=== PATIENT | male | born 1970 | race Caucasian/White ===

== ENCOUNTER 2018-10-31 20:02 | Emergency (ER) | payer BC ==
--- OUTSIDE RECORDS SUMMARY | 2018-10-31 20:05 | XMS REPORT ---
:1970 Author Organization eClinicalWorks Care Team Providers Name Role Phone KATHARINABUDDYDAVID Provider Role Unavailable Allergies, Adverse Reactions, Alerts Substance Reaction Event Type N.K.D.A. Info Not Available Non Drug Allergy Problems Problem Type Condition Code Onset Dates Condition Status Problem Fever in other diseases R50.81 Active Problem Diarrhea, unspecified type R19.7 Active Problem Diffuse abdominal pain R10.84 Active Assessment Cough R05 Active Assessment Bronchitis J40 Active Problem Acute non-recurrent sinusitis, J01.90 Active unspecified location Problem Personal history of colonic polyps Z86.010 Active Problem Gastroesophageal reflux disease K21.9 Active without esophagitis Problem Tobacco use disorder F17.200 Active Problem BMI 34.0-34.9,adult Z68.34 Active Problem BMI 35.0-35.9,adult Z68.35 Active Problem Obesity (BMI 35.0-39.9 without E66.9 Active comorbidity) Medications Medication Code Code Instructions Start End Status Dosage System Date Date Cheratussin AC ND 06234643960 10 mg-100 mg/5 August 09, Active 5 mL mL orally every 2016 8 hours Dulera ND 69487920073 5 mcg-200 August 16, Active 2 puff(s) mcg/inh inhaled 2017 2 times a day Azithromycin ND 57904221952 250 mg PO daily August 09August Active 2 tab on 2016 then 1 tab x 4 days Esomeprazole ND 28981282386 40 mg orally August 09Mar 07, Active 1 cap( s) Magnesium once a day 2016 2017 ProAir HFA ND 40308021144 90 mcg/inh August 16, Active 2 puff(s) inhaled 4 times 2016 a day levofloxacin ND 85354645429 500 mg orally August 16August Active 1 tab(s) every 24 hours 2016 Vital Signs Date/Time: August 16, 2016 Temperature 97.4 F Weight 229 lbs Height 68 in Respiratory Rate 16 /min Pulse 108 /min Blood Pressure Diastolic 80 mm Hg Blood Pressure Systolic 120 mm Hg BMI 34.82 Index Oximetry 96 % Results No Known Results Summary Purpose eClinicalWorks Submission
--- OUTSIDE RECORDS SUMMARY | 2018-10-31 20:05 | XMS REPORT ---
:1970 Author Organization eClinicalWorks Care Team Providers Name Role Phone GIAN PARKANNINE Provider Role Unavailable Allergies, Adverse Reactions, Alerts Substance Reaction Event Type N.K.D.A. Info Not Available Non Drug Allergy Problems Problem Type Condition Code Onset Dates Condition Status Problem Fever in other diseases R50.81 Active Problem Diarrhea, unspecified type R19.7 Active Problem Diffuse abdominal pain R10.84 Active Problem Acute non-recurrent sinusitis, J01.90 Active unspecified location Problem Personal history of colonic polyps Z86.010 Active Problem Gastroesophageal reflux disease K21.9 Active without esophagitis Problem Tobacco use disorder F17.200 Active Problem BMI 34.0-34.9,adult Z68.34 Active Problem BMI 35.0-35.9,adult Z68.35 Active Problem Obesity (BMI 35.0-39.9 without E66.9 Active comorbidity) Assessment Wheezing R06.2 Active Assessment Bronchitis J40 Active Assessment Tachycardia R00.0 Active Medications Medication Code Code Instructions Start End Status Dosage System Date Date levalbuterol ND 66732551351 1.25 mg/3 mL by August 27, Active 3 mL nebulizer 3 2017 times a day Medrol Dosepak NDC 0 6 day regimen August 27August Active taper as orally once 2016, directed daily 2016 Dulera NDC 01712665763 5 mcg-200 August 16, Active 2 puff(s) mcg/inh inhaled 2017 2 times a day Nebulizer NDC 0 as needed August 27, Active as directed 2016 ProAir HFA NDC 12519117923 90 mcg/inh August 16, Active 2 puff(s) inhaled 4 times 2016 a day Vital Signs Date/Time: August 27, 2016 Temperature 98.6 F Weight 232 lbs Height 68 in Respiratory Rate 16 /min Pulse 112 /min Blood Pressure Diastolic 82 mm Hg Blood Pressure Systolic 128 mm Hg BMI 35.27 Index Oximetry 97 % Results Name Result Date Reference Range Unit Abnormality Flag [facility] ([facility] Summary Purpose eClinicalWorks Submission
--- OUTSIDE RECORDS SUMMARY | 2018-10-31 20:05 | XMS REPORT ---
:1970 Author Organization eClinicalWorks Care Team Providers Name Role Phone SUMMER PHILLIPS Provider Role Unavailable Allergies, Adverse Reactions, Alerts [...] (BMI 35.0-39.9 without E66.9 Active comorbidity) Assessment Personal history of colonic polyps Z86.010 Active Assessment Gastroesophageal reflux disease K21.9 Active without esophagitis Assessment Obesity (BMI 35.0-39.9 without E66.9 Active comorbidity) Assessment Tobacco use disorder F17.200 Active Assessment BMI 35.0-35.9,adult Z68.35 Active Assessment Acute non-recurrent sinusitis, J01.90 Active unspecified location Medications Medication Code Code Instructions Start End Status Dosage System Date Date Esomeprazole [facility] 83239024543 40 mg orally August 09Mar 07, Active 1 cap( s) Magnesium once a day 2016 2017 Azithromycin ND 93242209627 250 mg PO daily August 09, Active 2 tab on 2017 day 1, then 1 tab x 4 days Cheratussin AC ND 17355922454 10 mg-100 mg/5 August 09, Active 5 mL mL orally every 2016 8 hours Vital Signs Date/Time: August 09, 2016 Temperature 98.0 F Weight 233 lbs Height 68 in Respiratory Rate 16 /min Pulse 90 /min Blood Pressure Diastolic 80 mm Hg Blood Pressure Systolic 132 mm Hg BMI 35.4 Index Oximetry 95 % Results No Known Results Summary Purpose eClinicalWorks Submission
--- OUTSIDE RECORDS SUMMARY | 2018-10-31 20:05 | XMS REPORT | Continuity of Care Document ---
:1970 Author Organization [employer] Care Team Providers Name Role Phone [employer] Unavailable Unavailable Problems Problem Status Onset Classification Date Comments Source Date Reported Fever in other Active Problem 10/25/2016 [facility] Diarrhea, Active Problem 10/25/2016 [facility] unspecified type [facility] Group Diffuse abdominal Active Problem 10/25/2016 [facility] Acute non-recurrent Active Problem 10/25/2016 [facility] sinusitis, [facility] unspecified location Personal history of Active Problem 07/14/2018 [facility] colonic polyps [facility] Gastroesophageal Active Problem 07/14/2018 [facility] reflux disease [facility] without esophagitis Tobacco use Active Problem 07/14/2018 [facility] BMI 34.0-34.9,adult Active Problem 07/14/2018 [facility] BMI 35.0-35.9,adult Active Problem 07/14/2018 [facility] Obesity (BMI Active Problem 07/14/2018 [facility] 35.0-39.9 without [facility] comorbidity) Bronchitis Active Diagnosis 10/25/2016 [facility] Wheezing Active Diagnosis 09/01/2016 [facility] Tachycardia Active Diagnosis 09/01/2016 [facility] Cough Active Diagnosis 07/14/2018 [facility] BMI 36.0-36.9,adult Active Problem 07/14/2018 [facility] Chronic fatigue Active Problem 07/14/2018 [facility] Obstructive sleep Active Problem 07/14/2018 [facility] apnea [facility] Has daytime Active Problem 07/14/2018 [facility] drowsiness [facility] Non morbid obesity Active Problem 07/14/2018 [facility] due to excess [facility] Group calories Acute non Active Problem 07/14/2018 [facility] intractable [facility] tension-type headache BMI 33.0-33.9,adult Active Problem 07/14/2018 [facility] Prediabetes Active Problem 07/14/2018 [facility] Vitamin D Active Problem 07/14/2018 [facility] deficiency [facility] Right sided Active Problem 07/14/2018 [facility] sciatica [facility] Right flank pain Active Diagnosis 06/18/2017 [facility] Sinus congestion Active Diagnosis 03/15/2018 [facility] Sore throat Active Diagnosis 07/14/2018 [facility] Chest tightness Active Diagnosis 07/14/2018 [facility] SOB (shortness of Active Diagnosis 07/14/2018 [facility] breath) [facility] Group Medications Medication Details Route Status Patient Ordering Order Source Instructions Provider Date Jt Perles 1 cap(s) orally Active 100 mg orally [facility] 04/23/ [facility] 3 times a day 2018 [facility] Group ProAir HFA 2 puff(s) inhaled Active 90 mcg/inh [facility] 04/23/ [facility] inhaled 4 2018 [facility] times a day fluticasone nasal 1 spray(s) intranasally Active 50 mcg/inh [facility] 04/23 / [facility] intranasally 2018 [facility] 2 times a day Mucinex 1 tab(s) orally Active 600 mg orally [facility] 04/23/ [facility] every 12 2018 [facility] hours Singulair 1 tab(s) orally Active 10 mg orally [facility] 04/23/ [facility] nightly 2018 [facility] Azithromycin 5 as po Active 250 mg po as [facility] Day Dose Pack directed directed 2018 [facility] Vitamin D3 1 tab(s) orally Active 1000 intl [facility] 07/02/ [facility] units orally 2017 [facility] once a day OTC cyclobenzaprine 1 tab(s) orally Active 5 mg orally [facility] 06/17/ [facility] qhs prn 2017 [facility] Med[facility] D[facility] ergocalciferol 1 cap(s) orally Active 50,000 intl [facility] 03/28/ [facility] units orally 2017 [facility] once a week Cheratussin AC 10 mL orally Active 10 mg-100 [facility] mg/5 mL 2016 [facility] orally every 4 hours prn levalbuterol 3 mL by nebulizer Active 1.25 mg/3 mL [facility] by nebulizer 2016 [facility] 3 times a day Nebulizer as NA Active as needed [facility] 08/27/ [facility] directed 2016 [facility] Medrol Dosepak taper as orally Active 6 day regimen [facility] 08/27/ [facility] directed orally once 2017 [facility] daily ProAir HFA 2 puff(s) inhaled Active 90 mcg/inh [facility] 08/16/ [facility] inhaled 4 2016 [facility] times a day Dulera 2 puff(s) inhaled Active 5 mcg-200 [facility] 08/16/ [facility] mcg/inh 2016 [facility] inhaled 2 times a day levofloxacin 1 tab(s) orally Active 500 mg orally [facility] 08/16/ [facility] every 24 2016 [facility] hours Cheratussin AC 5 mL orally Active 10 mg-100 [facility] 08/09/ [facility] mg/5 mL 2016 [facility] orally every 8 hours Azithromycin 2 tab on PO Active 250 mg PO [facility] 08/09/ [facility] day 1, daily 2016 [facility] then 1 tab x 4 days Esomeprazole 1 cap(s) orally Active 40 mg orally [facility] 08/09/ [facility] Magnesium once a day 2016 [facility] Nexium 1 cap(s) orally Active 40 mg orally [place] [facility] once a day [facility] Allergies, Adverse Reactions, Alerts Substance Category Reaction Severity Reaction Status Date Comments Source type Reported N.K.D.A. Adverse Info Not Adverse Active [facility] Reaction Available Reaction 9 [facility] Immunizations No Data Provided for This Section Results No Data Provided for This Section Pathology Reports No Data Provided for This Section Diagnostic Reports No Data Provided for This Section Consultation Notes No Data Provided for This Section Discharge Summaries No Data Provided for This Section History and Physicals No Data Provided for This Section Vital Signs Vital Sign Value Date Comments Source Temperature Oral (F) 98.2 F 04/23/2018 [facility] Weight 235.4 04/23/2018 [facility] Height 68 04/23/2018 [facility] Respitory Rate 16 04/23/2018 [facility] Diastolic (mm Hg) 82 04/23/2018 [facility] Systolic (mm Hg) 120 04/23/2018 [facility] Temperature Oral (F) 98.4 F 02/26/2018 [facility] Weight 235.2 02/26/2018 [facility] Height 68 02/26/2018 [facility] Respitory Rate 16 02/26/2018 [facility] Diastolic (mm Hg) 80 02/26/2018 [facility] Systolic (mm Hg) 120 02/26/2018 [facility] Temperature Oral (F) 98.0 F 06/17/2017 [facility] Weight 223.2 06/17/2017 [facility] Height 68 06/17/2017 [facility] Respitory Rate 16 06/17/2017 [facility] Diastolic (mm Hg) 86 06/17/2017 [facility] Systolic (mm Hg) 110 06/17/2017 [facility] Temperature Oral (F) 98.5 F 10/23/2016 [facility] Weight 233.8 10/23/2016 [facility] Height 68 10/23/2016 [facility] Respitory Rate 16 10/23/2016 [facility] Diastolic (mm Hg) 88 10/23/2016 [facility] Systolic (mm Hg) 122 10/23/2016 [facility] Temperature Oral (F) 98.6 F 08/27/2016 [facility] Weight 232 08/27/2016 [facility] Height 68 08/27/2016 [facility] Respitory Rate 16 08/27/2016 [facility] Diastolic (mm Hg) 82 08/27/2016 [facility] Systolic (mm Hg) 128 08/27/2016 [facility] Temperature Oral (F) 97.4 F 08/16/2016 [facility] Weight 229 08/16/2016 [facility] Height 68 08/16/2016 [facility] Respitory Rate 16 08/16/2016 [facility] Diastolic (mm Hg) 80 08/16/2016 [facility] Systolic (mm Hg) 120 08/16/2016 [facility] Temperature Oral (F) 98.0 F 08/09/2016 [facility] Weight 233 08/09/2016 [facility] Height 68 08/09/2016 [facility] Respitory Rate 16 08/09/2016 [facility] Diastolic (mm Hg) 80 08/09/2016 [facility] Systolic (mm Hg) 132 08/09/2016 [facility] Encounters No Data Provided for This Section Procedures No Data Provided for This Section Assessment and Plan No Data Provided for This Section Plan of Care No Data Provided for This Section Social History No Data Provided for This Section Family History No Data Provided for This Section Advance Directives No Data Provided for This Section Functional Status No Data Provided for This Section
--- OUTSIDE RECORDS SUMMARY | 2018-10-31 20:05 | XMS REPORT ---
:1970 Author Organization eClinicalWorks Care Team Providers Name Role Phone TOVA LYONS Provider Role Unavailable Allergies No Known Allergies Problems Problem Type Condition Code Onset Dates [...] (BMI 35.0-39.9 without E66.9 Active comorbidity) Medications No Known Medications Results No Known Results Summary Purpose eClinicalWorks Submission
--- OUTSIDE RECORDS SUMMARY | 2018-10-31 20:05 | XMS REPORT ---
:1970 Author Organization eClinicalWorks Care Team Providers Name Role Phone CHANTELL WHITMAN Provider Role Unavailable Allergies, Adverse Reactions, Alerts Substance Reaction Event Type N.K.D.A. Info Not Available Non Drug Allergy Problems Problem Type Condition Code Onset Dates Condition Status Problem Fever in other diseases R50.81 Active Problem Diarrhea, unspecified type R19.7 Active Problem Diffuse abdominal pain R10.84 Active Assessment Tobacco use disorder F17.200 Active Assessment Bronchitis J40 Active Problem Acute [...] Status Dosage System Date Date levalbuterol ND 46131007695 1.25 mg/3 mL by August 27, Active 3 mL nebulizer 3 2017 times a day Cheratussin AC ND 09482596438 10 mg-100 mg/5 Oct 23, Active 10 mL mL orally every 2017 4 hours prn Nebulizer NDC 0 as needed August 27, Active as directed 2016 ProAir HFA ND 92216352385 90 mcg/inh August 16, Active 2 puff(s) inhaled 4 times 2017 a day Dulera NDC 70648984004 5 mcg-200 August 16, Active 2 puff(s) mcg/inh inhaled 2017 2 times a day Vital Signs Date/Time: Oct 23, 2016 Temperature 98.5 F Weight 233.8 lbs Height 68 in Respiratory Rate 16 /min Pulse 101 /min Blood Pressure Diastolic 88 mm Hg Blood Pressure Systolic 122 mm Hg BMI 35.55 Index Oximetry 99 % Results No Known Results Summary Purpose eClinicalWorks Submission
--- OUTSIDE RECORDS SUMMARY | 2018-10-31 20:06 | XMS REPORT ---
:1970 Author Organization eClinicalWorks Care Team Providers Name Role Phone LYONS, TOVA Provider Role Unavailable Allergies No Known Allergies Problems Problem Type Condition Code Onset Dates Condition Status Problem Chronic fatigue R53.82 Active Problem Acute non intractable tension-type G44.209 Active headache Problem Obstructive sleep apnea G47.33 Active Problem BMI 33.0-33.9,adult Z68.33 Active Problem Prediabetes R73.03 Active Problem Vitamin D deficiency E55.9 Active Problem BMI 36.0-36.9,adult Z68.36 Active Problem Non morbid obesity due to excess E66.09 Active calories Problem Right sided sciatica M54.31 Active Problem Has daytime drowsiness R40.0 Active Problem BMI 35.0-35.9,adult Z68.35 Active Problem Gastroesophageal reflux disease K21.9 Active without esophagitis Problem BMI 34.0-34.9,adult Z68.34 Active Problem Personal history of colonic polyps Z86.010 Active Problem Tobacco use disorder F17.200 Active Problem Obesity (BMI 35.0-39.9 without E66.9 Active comorbidity) Medications Medication Code System Code Instructions Start Date End Date Status Dosage Vitamin D3 [facility] 74208961191 1000 intl units July 02, Active 1 tab(s) orally once a day 2018 OTC Results No Known Results Summary Purpose eClinicalWorks Submission
--- OUTSIDE RECORDS SUMMARY | 2018-10-31 20:06 | XMS REPORT ---
:1970 Author Organization eClinicalWorks Care Team Providers Name Role Phone SE J CARLOSJAL Provider Role Unavailable Allergies, Adverse Reactions, Alerts Substance Reaction Event Type N.K.D.A. Info Not Available Non Drug Allergy Problems Problem Type Condition Code Onset Dates Condition Status Problem Chronic fatigue R53.82 Active Problem Acute non intractable tension-type G44.209 Active headache Problem Obstructive sleep apnea G47.33 Active Problem BMI 33.0-33.9,adult Z68.33 Active Assessment BMI 33.0-33.9,adult Z68.33 Active Problem Prediabetes R73.03 Active Assessment Tobacco use disorder F17.200 Active Assessment Chronic fatigue R53.82 Active Problem Vitamin D deficiency E55.9 Active Problem BMI 36.0-36.9,adult Z68.36 Active Problem Non morbid obesity due to excess E66.09 Active calories Problem Right sided sciatica M54.31 Active Problem Has daytime drowsiness R40.0 Active Assessment Vitamin D deficiency E55.9 Active Assessment Right flank pain R10.9 Active Assessment Obstructive sleep apnea G47.33 Active Assessment Prediabetes R73.03 Active Problem BMI 35.0-35.9,adult Z68.35 Active Problem Gastroesophageal reflux disease K21.9 Active without esophagitis Problem BMI 34.0-34.9,adult Z68.34 Active Problem Personal history of colonic polyps Z86.010 Active Assessment Right sided sciatica M54.31 Active Problem Tobacco use disorder F17.200 Active Problem Obesity (BMI 35.0-39.9 without E66.9 Active comorbidity) Medications Medication Code Code Instructions Start End Status Dosage System Date Date cyclobenzaprine ND 49803698299 5 mg orally qhs June 17June 27, Active 1 tab(s) prn 2017 2017 Nexium ND 14922147614 40 mg orally Active 1 cap(s) once a day ergocalciferol ND 65393291405 50,000 intl Feb June 17, Active 1 cap( s) units orally 2017 2017 once a week Medrol Dosepak [facility] [place] 47950469573 orally as June 17, Active as directed directed 2017 Vital Signs Date/Time: June 17, 2017 Temperature 98.0 F Weight 223.2 lbs Height 68 in Respiratory Rate 16 /min Pulse 88 /min Blood Pressure Diastolic 86 mm Hg Blood Pressure Systolic 110 mm Hg BMI 33.93 Index Oximetry 98 % Results No Known Results Summary Purpose eClinicalWorks Submission
--- OUTSIDE RECORDS SUMMARY | 2018-10-31 20:06 | XMS REPORT ---
:1970 Author Organization eClinicalWorks Care Team Providers Name Role Phone LYONSTOVA HOOK Provider Role Unavailable Allergies No Known Allergies Problems Problem Type Condition Code Onset Dates Condition Status Problem BMI 35.0-35.9,adult Z68.35 Active Problem Personal history of colonic polyps Z86.010 Active Problem Gastroesophageal reflux disease K21.9 Active without esophagitis Problem BMI 34.0-34.9,adult Z68.34 Active Problem Tobacco use disorder F17.200 Active Problem BMI 36.0-36.9,adult Z68.36 Active Problem Chronic fatigue R53.82 Active Problem Obstructive sleep apnea G47.33 Active Problem Has daytime drowsiness R40.0 Active Problem Obesity (BMI 35.0-39.9 without E66.9 Active comorbidity) Problem Non morbid obesity due to excess E66.09 Active calories Problem Acute non intractable tension-type G44.209 Active headache Medications Medication Code Code Instructions Start End Status Dosage System Date Date ergocalciferol [facility] 49275491101 50,000 intl Mar 28, Active 1 cap(s) units orally 2018 once a week Results No Known Results Summary Purpose eClinicalWorks Submission
--- OUTSIDE RECORDS SUMMARY | 2018-10-31 20:06 | XMS REPORT ---
:1970 Author Organization [employer]Works Care Team Providers Name Role Phone CONSTANTINO YOU Provider Role Unavailable Allergies, Adverse Reactions, Alerts [...] Problem Has daytime drowsiness R40.0 Active Assessment Sinus congestion R09.81 Active Problem BMI 35.0-35.9,adult Z68.35 Active Problem Gastroesophageal reflux disease K21.9 Active without esophagitis Problem BMI 34.0-34.9,adult Z68.34 Active Problem Personal history of colonic polyps Z86.010 Active Problem Tobacco use disorder F17.200 Active Problem Obesity (BMI 35.0-39.9 without E66.9 Active comorbidity) Medications Medication Code Code Instructions Start End Status Dosage System Date Date Nexium [facility] [place] 56847261403 40 mg orally Active 1 cap(s) once a day Medrol Dosepak [facility] [place] 95799798658 orally as June 17, Active as directed directed 2018 Vitamin D3 [facility] [place] 14955089814 1000 intl units July 02, Active 1 tab(s) orally once a 2017 day OTC Vital Signs Date/Time: Feb 26, 2018 Temperature 98.4 F Weight 235.2 lbs Height 68 in Respiratory Rate 16 /min Pulse 98 /min Blood Pressure Diastolic 80 mm Hg Blood Pressure Systolic 120 mm Hg BMI 35.76 Index Oximetry 97 % Results No Known Results Summary Purpose eClinicalWorks Submission
--- OUTSIDE RECORDS SUMMARY | 2018-10-31 20:06 | XMS REPORT ---
:1970 Author Organization [employer]ClinicalWorks Care Team Providers Name Role Phone [place] Provider Role Unavailable Allergies, Adverse Reactions, Alerts Substance Reaction Event Type N.K.D.A. Info Not Available Non Drug Allergy Problems Problem Type Condition Code Onset Dates Condition Status Problem Chronic fatigue R53.82 Active Problem Acute non intractable tension-type G44.209 Active headache Problem Obstructive sleep apnea G47.33 Active Problem BMI 33.0-33.9,adult Z68.33 Active Assessment Sore throat J02.9 Active Problem Prediabetes R73.03 Active Problem Vitamin D deficiency E55.9 Active Problem BMI 36.0-36.9,adult Z68.36 Active Problem Non morbid obesity due to excess E66.09 Active calories Problem Right sided sciatica M54.31 Active Problem Has daytime drowsiness R40.0 Active Assessment Chest tightness R07.89 Active Assessment Cough R05 Active Assessment SOB (shortness of breath) R06.02 Active Problem BMI 35.0-35.9,adult Z68.35 Active Problem Gastroesophageal reflux disease K21.9 Active without esophagitis Problem BMI 34.0-34.9,adult Z68.34 Active Problem Personal history of colonic polyps Z86.010 Active Problem Tobacco use disorder F17.200 Active Problem Obesity (BMI 35.0-39.9 without E66.9 Active comorbidity) Medications Medication Code Code Instructions Start End Date Status Dosage System Date Jt Akhtar [facility] 23744544756 100 mg orally 3 April Active 1 cap (s) times a day 2018 ProAir HFA ND 64913449533 90 mcg/inh April Active 2 puff(s) inhaled 4 times 2018 a day fluticasone ND 77112139405 50 mcg/inh April Active 1 spray(s) nasal intranasally 2 2018 times a day Mucinex ND 97609708567 600 mg orally April Active 1 tab(s) every 12 hours 2018 Nexium ND 31209390999 40 mg orally Active 1 cap(s) once a day Vitamin D3 [facility] 17365603303 1000 intl units July 02 Active 1 tab(s) orally once a 2017 day OTC Singulair [facility] 43579929894 10 mg orally April Active 1 tab(s) nightly [address]ithromycin [address] [facility] 11954179599 250 mg po as April Active as directed Day Dose Pack directed 2018 Vital Signs Date/Time: April 23, 2018 Temperature 98.2 F Weight 235.4 lbs Height 68 in Respiratory Rate 16 /min Pulse 108 /min Blood Pressure Diastolic 82 mm Hg Blood Pressure Systolic 120 mm Hg BMI 35.79 Index Oximetry 98 % Results No Known Results Summary Purpose eClinicalWorks Submission
[2018-10-31] MEDS ORDERED: NA CHLORIDE 0.9% 1,000 ML ONE (21:14)
[2018-10-31 21:42] LABS: Absolute Lymphocytes (CBC) 2.9 K/uL (0.7-4.9); Basophils % 0.5 % (0-1.3); Hematocrit 45.7 % (39.6-49.0); Lymphocytes % 32.3 % (15.3-44.8); MPV 8.3 fL (7.6-11.3)
[2018-10-31 21:51] LABS: ALT/SGPT 34 U/L (12-78); AST/SGOT 12 U/L (15-37); Albumin 3.8 g/dL (3.4-5.0); Alkaline Phosphatase 91 U/L (45-117); BUN Blood Urea Nitrogen 15 mg/dL (7-18); Bicarbonate 27 mmol/L (21-32); Bilirubin Direct 0.1 mg/dL (0-0.2); Bilirubin Total 0.4 mg/dL (0.2-1.0); Glucose Level 101 mg/dL (74-106); Lipase 44 U/L (73-393); Potassium 3.7 mmol/L (3.5-5.1); Sodium Level 140 mmol/L (136-145)
[2018-10-31] MEDS ORDERED: MORPHINE 2 MG/ML SYR ONE (21:53)
[2018-10-31] MEDS ORDERED: PANTOPRAZOLE 40 MG INJ ONE (21:53)
[2018-10-31] MEDS ORDERED: ONDANSETRON 4 MG/2 ML VIAL ONE (21:53)
[2018-10-31 22:44] LABS: Troponin I < 0.02 ng/mL (0.0-0.045)
--- NOTE | 2018-10-31 23:57 | ER ---
Nurse's Notes [facility] Name: Stuart Cameron Age: 48 yrs Sex: Male : 1970 Arrival Date: 10/31/2018 Time: 20:04 Bed 27 Private MD: Diagnosis: Unspecified abdominal pain Presentation: 10/31 20:57 Presenting complaint: Patient states: pain in the epigastric area started with rv SOB, Nausea and Diarrhea (watery). tender on all 4 quadrants of the abdomen. sharp pain on the right side sometimes. mostly the pain is continuous, 10/10 scale. Transition of care: patient was not received from another setting of care. Onset of symptoms was October 30, 2018 at 08:00. Risk Assessment: Do you want to hurt yourself or someone else? Patient reports no desire to harm self or others. Initial Sepsis Screen: Does the patient meet any 2 criteria? No. Patient's initial sepsis screen is negative. Does the patient have a suspected source of infection? No. Patient's initial sepsis screen is negative. Care prior to arrival: None. 20:57 Method Of Arrival: Ambulatory rv 20:57 Acuity: MELLISSA 3 rv Historical: - Allergies: 21:02 No Known Allergies; rv - Home Meds: 21:02 None [Active]; rv - PMHx: 21:02 GERD; rv - PSHx: 21:02 None; rv - Immunization history:: Adult Immunizations not up to date. - Social history:: Smoking status: Patient uses tobacco products. - Ebola Screening: : No symptoms or risks identified at this time. Screenin:03 Abuse screen: Denies threats or abuse. Denies injuries from another. Nutritional rv screening: No deficits noted. Tuberculosis screening: No symptoms or risk factors identified. Fall Risk None identified. Assessment: 21:02 General: Appears in no apparent distress. comfortable, Behavior is calm, cooperative. rv Pain: Complains of pain in abdomen. Neuro: Level of Consciousness is awake, alert, obeys commands, Oriented to person, place, time, situation. Cardiovascular: Patient's skin is warm and dry. Respiratory: Airway is patent. GI: Bowel sounds present X 4 quads. Abdomen is tender to palpation X 4 quads. : No signs and/or symptoms were reported regarding the genitourinary system. EENT: No signs and/or symptoms were reported regarding the EENT system. Derm: Skin is intact. Musculoskeletal: No signs and/or symptoms reported regarding the musculoskeletal system. 23:13 Reassessment: Patient appears in no apparent distress at this time. Patient and/or rv family updated on plan of care and expected duration. Pain level reassessed. Patient is alert, oriented x 3, equal unlabored respirations, skin warm/dry/pink. Pain is decreased. patient is updated on plan of care. awaiting CT scan result. 11/01 00:00 Reassessment: CT SCAN RESULT CAME BACK NEGATIVE. SAE TALKED TO THE PATIENT rv REGARDING THE RESULT AND PLAN OF CARE. ADVISED DISCHARGE. PATIENT AGREED. Vital Signs: 10/31 20:56 BP 117 / 82; Pulse 86; Resp 16; Temp 98.9; Pulse Ox 96% ; Weight 104.33 kg; Height 5 rv ft. 8 in. (172.72 cm); Pain 10/10; 22:00 BP 111 / 80; Pulse 81; Resp 15; Pulse Ox 97% on R/A; rv 23:00 BP 125 / 95; Pulse 79; Resp 15; Pulse Ox 97% on R/A; rv 20:56 Body Mass Index 34.97 (104.33 kg, 172.72 cm) rv ED Course: 20:04 Patient arrived in ED. cl3 20:49 Sotero De Leon, AVI is Primary Nurse. rv 20:54 Surinder Meeks PA is PHCP. cp 20:54 Surinder Anton MD is Attending Physician. cp 21:00 Triage completed. rv 21:03 Patient has correct armband on for positive identification. Bed in low position. Call rv light in reach. Side rails up X 1. Pulse ox on. NIBP on. 21:04 Patient placed in the treatment room, on a stretcher, on pulse oximetry, Patient rv notified of wait time. 22:28 Ultrasound completed. Patient tolerated well. Notified ED Physician surinder. sg3 22:31 US Abdomen Limited In Process Unspecified. EDMS 22:43 XRAY Chest (1 view) In Process Unspecified. EDMS 22:49 PHCP role handed off by Surinder Meeks PA pm1 22:49 Sae Chavez NP is PHCP. pm1 22:51 CT completed. Patient tolerated procedure well. Patient moved back from CT. vm2 23:08 CT Abd/Pelvis - IV Contrast Only In Process Unspecified. EDMS 11/01 00:21 No provider procedures requiring assistance completed. IV discontinued, intact, rv bleeding controlled, No redness/swelling at site. Pressure dressing applied. Administered Medications: 10/31 21:19 Drug: NS 0.9% 1000 ml Route: IV; Rate: 1 bolus; Site: right antecubital; rv 22:30 Follow up: IV Status: Completed infusion; IV Intake: 1000ml rv 21:56 Drug: morphine 2 mg Route: IVP; Site: right antecubital; rv 11/01 00:20 Follow up: Response: No adverse reaction; Marked relief of symptoms; Pain is decreased; rv RASS: Alert and Calm (0) 10/31 21:57 Drug: ProTONIX 40 mg Route: IVP; Site: right antecubital; rv 11/01 00:19 Follow up: Response: No adverse reaction rv 10/31 21:57 Drug: Zofran 4 mg Route: IVP; Site: right antecubital; rv 11/01 00:20 Follow up: Response: No adverse reaction; Marked relief of symptoms; Pain is decreased; rv RASS: Alert and Calm (0) Intake: 10/31 22:30 IV: 1000ml; Total: 1000ml. rv Outcome: 23:56 Discharge ordered by . pm1 11/01 00:21 Discharged to home ambulatory, with family. rv Condition: good Discharge instructions given to patient, Instructed on discharge instructions, follow up and referral plans. medication usage, Demonstrated understanding of instructions, follow-up care, medications, Prescriptions given X 1. 00:23 Patient left the ED. rv Signatures: Dispatcher [employer] EDMS Surinder Meeks PA PA cp Marinas, Patrick, GUY IT SYSTEMS ADMINISTRATOR pm1 Augusta Craig vm2 Dorsi Siu sg3 Sotero De Leon RN RN rv Jairo Schmidt cl3
--- NOTE | 2018-10-31 23:57 | EDPHYS ---
Physician Documentation [facility] Name: Stuart Cameron Age: 48 yrs Sex: Male : 1970 Arrival Date: 10/31/2018 Time: 20:04 Bed 27 Private MD: ED Physician Surinder Anton HPI: 10/31 21:25 This 48 yrs old Male presents to ER via Ambulatory with complaints of cp Abdominal Pain. 21:25 The patient presents with abdominal pain in the epigastric area, in the upper abdomen. cp 21:25 Onset: The symptoms/episode began/occurred yesterday. cp 21:25 The symptoms do not radiate. Associated signs and symptoms: Pertinent positives: cp diarrhea, nausea, Pertinent negatives: blood in stools, chest pain, constipation, testicular pain, vomiting. The symptoms are described as "like someone punching me". Modifying factors: the symptoms are aggravated by pressure. Severity of pain: in the emergency department the pain is unchanged despite home interventions. Historical: - Allergies: 21:02 No Known Allergies; rv - Home Meds: 21:02 None [Active]; rv - PMHx: 21:02 GERD; rv - PSHx: 21:02 None; rv - Immunization history:: Adult Immunizations not up to date. - Social history:: Smoking status: Patient uses tobacco products. - Ebola Screening: : No symptoms or risks identified at this time. ROS: 21:30 Constitutional: Negative for body aches, chills, fever, poor PO intake. cp 21:30 Eyes: Negative for injury, pain, redness, and discharge. cp 21:30 ENT: Negative for drainage from ear(s), ear pain, sore throat, difficulty swallowing, difficulty handling secretions. 21:30 Cardiovascular: Negative for chest pain, edema, palpitations. 21:30 Respiratory: Negative for cough, shortness of breath, wheezing. 21:30 Abdomen/GI: Positive for abdominal pain, nausea, diarrhea, Negative for vomiting, constipation, black/tarry stool, rectal bleeding. 21:30 : Negative for urinary symptoms, testicular pain 21:30 Neuro: Negative for altered mental status, headache, weakness. 21:30 All other systems are negative. Exam: 21:35 Constitutional: The patient appears in no acute distress, alert, awake, cp non-diaphoretic, non-toxic, well developed, well nourished. 21:35 Head/Face: Normocephalic, atraumatic. cp 21:35 Eyes: Periorbital structures: appear normal, Conjunctiva: normal, no exudate, no injection, Sclera: no appreciated abnormality, Lids and lashes: appear normal, bilaterally. 21:35 ENT: External ear(s): are unremarkable, Nose: is normal, Mouth: is normal, Posterior pharynx: is normal, airway is patent. 21:35 Chest/axilla: Inspection: normal, Palpation: is normal, no crepitus, no tenderness. 21:35 Cardiovascular: Rate: normal, Rhythm: regular. 21:35 Respiratory: the patient does not display signs of respiratory distress, Respirations: normal, no use of accessory muscles, no retractions, no splinting, no tachypnea, labored breathing, is not present, Breath sounds: are clear throughout, no decreased breath sounds, no stridor, no wheezing. 21:35 Abdomen/GI: Inspection: abdomen appears normal, Bowel sounds: active, all quadrants, Palpation: soft, in all quadrants, moderate abdominal tenderness, in the epigastric area and right upper quadrant, rebound tenderness, is not appreciated, voluntary guarding, is elicited in the epigastric area and right upper quadrant. 21:35 Back: pain, is absent, ROM is normal. 21:35 Skin: no rash present. 21:35 Neuro: Orientation: to person, place \\T\\ time. Mentation: is normal, Motor: moves all fours, strength is normal. 22:20 ECG was reviewed by the Attending Physician. cp Vital Signs: 20:56 BP 117 / 82; Pulse 86; Resp 16; Temp 98.9; Pulse Ox 96% ; Weight 104.33 kg; Height 5 rv ft. 8 in. (172.72 cm); Pain 10/10; 22:00 BP 111 / 80; Pulse 81; Resp 15; Pulse Ox 97% on R/A; rv 23:00 BP 125 / 95; Pulse 79; Resp 15; Pulse Ox 97% on R/A; rv 20:56 Body Mass Index 34.97 (104.33 kg, 172.72 cm) rv MDM: 20:58 Patient medically screened. yogi 21:40 Differential diagnosis: cholecystitis, Cholelithiasis, diverticulitis, gastritis, cp gastroesophageal reflux disease, non-specific abd pain, pancreatitis, Peptic Ulcer Disease, Perf. Duodenal Ulcer, Perf. Gastric Ulcer, Ureterolithiasis, urinary tract infection. 22:40 ED course: received verbal report from tech that study showed sludge w/o stones or cp wall thickening. 23:55 ED course: Offered patient GI cocktail. Patient refused. Discussed CT findings with pm1 patient and recommended follow up with GI for EGD. 23:55 Data reviewed: vital signs. Data interpreted: Pulse oximetry: on room air is 97 %. pm1 Interpretation: normal. Counseling: I had a detailed discussion with the patient and/or guardian regarding: the historical points, exam findings, and any diagnostic results supporting the discharge/admit diagnosis, lab results, radiology results, the need for outpatient follow up, for definitive care, a diamond grader, to return to the emergency department if symptoms worsen or persist or if there are any questions or concerns that arise at home. 10/31 21:12 Order name: Basic Metabolic Panel; Complete Time: 22:49 10/31 21:12 Order name: CBC with Diff; Complete Time: 22:07 10/31 21:12 Order name: Creatinine for Radiology; Complete Time: 22:07 10/31 21:12 Order name: Hepatic Function; Complete Time: 22:49 10/31 21:12 Order name: Lipase; Complete Time: 22:49 10/31 21:45 Order name: US Abdomen Limited 10/31 21:45 Order name: XRAY Chest (1 view) 10/31 22:21 Order name: Troponin I; Complete Time: 22:49 EDMS 10/31 22:27 Order name: CT Abd/Pelvis - IV Contrast Only 10/31 21:12 Order name: IV Saline Lock; Complete Time: 21:18 10/31 21:12 Order name: Labs collected and sent; Complete Time: 21:18 10/31 21:45 Order name: NPO; Complete Time: 21:57 10/31 21:45 Order name: EKG; Complete Time: 21:47 10/31 21:45 Order name: EKG - Nurse/Tech; Complete Time: 22:04 cp EC:20 Rate is 75 beats/min. Rhythm is regular. AL interval is normal. QRS interval is normal. cp QT interval is normal. Interpreted by me. Reviewed by me. Administered Medications: :19 Drug: NS 0.9% 1000 ml Route: IV; Rate: 1 bolus; Site: right antecubital; rv 22:30 Follow up: IV Status: Completed infusion; IV Intake: 1000ml rv 21:56 Drug: morphine 2 mg Route: IVP; Site: right antecubital; rv 11/01 00:20 Follow up: Response: No adverse reaction; Marked relief of symptoms; Pain is decreased; rv RASS: Alert and Calm (0) 10/31 21:57 Drug: ProTONIX 40 mg Route: IVP; Site: right antecubital; rv 11/01 00:19 Follow up: Response: No adverse reaction rv 10/31 21:57 Drug: Zofran 4 mg Route: IVP; Site: right antecubital; rv 11/01 00:20 Follow up: Response: No adverse reaction; Marked relief of symptoms; Pain is decreased; rv RASS: Alert and Calm (0) Disposition: 10/31/18 23:56 Discharged to Home. Impression: Unspecified abdominal pain. - Condition is Stable. - Discharge Instructions: Abdominal Pain, Adult. - Prescriptions for Bentyl 20 mg Oral Tablet - take 1 tablet by ORAL route every 6 hours As needed; 20 tablet. - Medication Reconciliation Form, Thank You Letter, Antibiotic Education, Prescription Opioid Use, Work release form form. - Follow up: Emergency Department; When: As needed; Reason: Worsening of condition. Follow up: Private Physician; When: 2 - 3 days; Reason: Recheck today's complaints, Continuance of care, Re-evaluation by your physician. - Problem is new. - Symptoms have improved. Addendum: 11/03/2018 09:20 Co-signature as Attending Physician, Surinder Anton MD I agree with the assessment and c higgins plan of care. Signatures: Dispatcher [employer] EDSurinder Siddiqui MD MD cha Page, Corey, PA PA cp Sae Chavez, ASSOCIATE SCIENTIST ASSOCIATE SCIENTIST pm1 Sotero De Leon RN RN rv Corrections: (The following items were deleted from the chart) 10/31 22:21 21:47 TROPONIN I+C.LAB.BRZ ordered. EDMS EDMS 22:33 22:30 Abdomen Limited+US.RAD.BRZ ordered. EDMS EDMS 22:42 10/30 21:30 Constitutional: Negative for body aches, chills, fever, poor PO intake, cp cp 10/31 22:42 10/30 21:30 Eyes: Negative for injury, pain, redness, and discharge, cp cp 10/31 22:42 10/30 21:30 ENT: Negative for drainage from ear(s), ear pain, sore throat, difficulty cp swallowing, difficulty handling secretions, cp 10/31 22:10/30 21:30 Cardiovascular: Negative for chest pain, palpitations, cp cp 10/31 22:42 10/30 21:30 Respiratory: Negative for cough, shortness of breath, wheezing, cp cp 10/31 22:10/30 21:30 Abdomen/GI: Positive for abdominal pain, nausea, diarrhea, Negative for cp vomiting, constipation, black/tarry stool, rectal bleeding, cp 10/31 22:42 10/30 21:30 : Negative for urinary symptoms, testicular pain cp cp 10/31 22:42 10/30 21:30 Skin: Negative for rash, cp cp 10/31 22:42 10/30 21:30 Neuro: Negative for altered mental status, headache, weakness, cp cp 10/31 22:42 10/30 21:30 All other systems are negative, cp cp 11/01 00:23 10/31 23:56 10/31/2018 23:56 Discharged to Home. Impression: Unspecified abdominal rv pain. Condition is Stable. Forms are Medication Reconciliation Form, Thank You Letter, Antibiotic Education, Prescription Opioid Use. Follow up: Emergency Department; When: As needed; Reason: Worsening of condition. Follow up: Private Physician; When: 2 - 3 days; Reason: Recheck today's complaints, Continuance of care, Re-evaluation by your physician. Problem is new. Symptoms have improved. pm1
[2018-11-01 01:01] VITALS: TEMP 98.9
[2018-11-01 01:02] VITALS: O2SAT 97
[2018-11-01 01:03] VITALS: BP 125/95
--- NOTE | 2018-11-01 11:22 | RAD REPORT ---
EXAM DESCRIPTION: US - Abdomen Exam Limited - 10/31/2018 10:30 pm CLINICAL HISTORY: ABD PAIN COMPARISON: No comparisons FINDINGS: The gallbladder demonstrates no gallstones. Small amount of sludge noted. No pericholecyst ic fluid or gallbladder wall thickening. The common bile duct is normal measuring 3 mm. The liver demonstrates no findings of intrahepatic biliary dilatation. IMPRESSION: Small amount of gallbladder sludge.
--- NOTE | 2018-11-01 11:41 | RAD REPORT ---
EXAM DESCRIPTION: RAD - Chest Single View - 10/31/2018 10:43 pm CLINICAL HISTORY: epigastric pain Chest pain. COMPARISON: 3D DIAG LIZETTE BILAT W/CAD dated 10/31/2018Chest Single View dated 09/05/2016; Chest Pa And L at (2 Views) dated 03/28/2016; CHEST SINGLE VIEW dated 06/23/2014; CHEST PA AND LAT 2 VIEW dated 014 FINDINGS: Portable technique limits examination quality. Minimal atelectasis is present left lung base. The lungs are otherwise clear. The heart is normal in size. No displaced fractures.
--- NOTE | 2018-11-01 14:15 | EKG ---
Test Date: 2018-10-31 Test Time: 22:10:28 Mule Developer: MG MEASUREMENT RESULTS: Intervals: Rate: 75 MT: 124 QRSD: 76 QT: 368 QTc: 410 [place]: P: 20 MT: 124 QRS: 24 T: 52 INTERPRETIVE STATEMENTS: Normal sinus rhythm Normal ECG Compared to ECG 09/05/2016 10:22:13 No significant changes Electronically Signed On 11-01-18 14:13:25 CDT by Horacio Dior
--- NOTE | 2018-11-03 11:22 | RAD REPORT ---
EXAM DESCRIPTION: Angio Aorta For Dissection CLINICAL HISTORY: DYSPNEA COMPARISON: None. TECHNIQUE: CT CHEST ABDOMEN PELVIS ANGIOGRAPHY WITH IV CONTRAST on 10/31/2018 8:47 PM CDT. MIPS recon structions were generated. This exam was performed according to our departmental dose-optimization program, which includes autom ated exposure control, adjustment of the mA and/or kV according to patient size and/or use of iterati ve reconstruction technique. FINDINGS: Vascular: Descending thoracic aorta is mildly atherosclerotic without aneurysm. Pulmonary arteries are adequately opacified without acute or chronic filling defects. Abdominal aorta is normal in course and caliber without aneurysm. Pelvic arteries are patent without aneurysm or occlusion. Chest: The heart is normal in size. There is no pericardial effusion. Intrathoracic lymph nodes are n ot enlarged. There is no pleural effusion, pleural thickening or pneumothorax. There is moderate AP narrowing of t he left mainstem bronchus, measuring 7 mm versus 13 mm on the right. There is a lobulated posterior r ight apical nodule measuring 1.7 x 1.7 cm. There is upper lung centrilobular emphysema. Abdomen: The liver is normal in appearance. There is no biliary dilatation. Cholecystectomy was perfo rmed. The pancreas and spleen are normal in appearance. The adrenal glands and kidneys are unremarkab le. There is no free air. There is bulky infiltrating adenopathy throughout the central mediastinum, exte nding to specially encase the left mainstem bronchus.Abdominal aorta is severely atherosclerotic with no aneurysm. There may be mild stenosis of the distal aorta. There is likely stenosis of the proxima l right common iliac artery. Major aortic branches are diffusely patent. Pelvis: There is no bowel obstruction. Urinary bladder is unremarkable. There is no free fluid. Uteru s is normal in size. Appendix is normal. Skeleton: There are no acute osseous findings. No suspicious bony lesions. IMPRESSION: No aortic dissection or aneurysm. No pulmonary embolus. Right upper lobe lobulated pulmonary nodule, highly suspicious for primary lung carcinoma. Associated infiltrative adenopathy throughout the mediastinum. Recommend PET/CT. Electronically signed by: Saroj Courtney MD 10/31/2018 11:08 PM CDT Due to temporary technical issues with the PACS/Fluency reporting system, reports are being signed by the in house radiologist as a courtesy to ensure prompt reporting. The interpreting radiologist is f ully responsible for the content of the report.
== END 2018-11-01 00:23 | disposition home or self-care (01) ==
LOC: ER 20:02
DX: R10.9 Unspecified abdominal pain (principal); Z72.0 Tobacco use
CPT/HCPCS: 96361; 93005; 85025; 80048; 36415; 80076; 84484; 83690; 74177; 71045; 76705; 96375; 96374; 99284; Q9967; C9113; J2270; J7030; J2405

== ENCOUNTER 2019-02-10 05:40 | Emergency (ER) | payer BC ==
--- NOTE | 2019-02-10 06:33 | ER ---
Nurse's Notes [facility] Name: Stuart Cameron Age: 49 yrs Sex: Male : 1970 Arrival Date: 02/10/2019 Time: 05:41 Bed 19 Private MD: Diagnosis: Acute bronchitis;Acute sinusitis Presentation: 02/10 05:50 Presenting complaint: Patient states: he has had a persistant cough since before bb Summer which he can't seem to shake he has used over the counter medications with no relief, in the morning he has a lot of discharge from his nose and coughs up a lot of mucous and he is short of breath denies fever. Transition of care: patient was not received from another setting of care. Onset of symptoms was January 2019. Risk Assessment: Do you want to hurt yourself or someone else? Patient reports no desire to harm self or others. Initial Sepsis Screen: Does the patient meet any 2 criteria? RR > 20 per min. HR > 90 bpm. Yes Does the patient have a suspected source of infection? Yes: Productive cough/pneumonia If YES to both, name of provider notified: Cruz MACKENZIE Care prior to arrival: None. 05:50 Method Of Arrival: Ambulatory bb 05:50 Acuity: MELLISSA 3 bb Triage Assessment: 05:50 General: Appears in no apparent distress. uncomfortable, Behavior is calm, cooperative. vc Pain: Complains of pain in Patient states that the only pain he experiences is while coughing. Historical: - Allergies: 05:53 No Known Allergies; bb - Home Meds: 05:53 None [Active]; bb - PMHx: 05:53 GERD; bb - PSHx: 05:53 colonoscopy; bb - Immunization history:: Adult Immunizations up to date, Flu vaccine is not up to date. - Social history:: Smoking status: Patient uses tobacco products, chewing tobacco, Patient uses alcohol, but reports only rare drinking. Patient/guardian denies using street drugs. - Ebola Screening: : No symptoms or risks identified at this time. Screenin:50 Abuse screen: Denies threats or abuse. Nutritional screening: No deficits noted. vc Tuberculosis screening: No symptoms or risk factors identified. Fall Risk None identified. Assessment: 05:55 General: Appears in no apparent distress. Behavior is calm. Neuro: Level of vc Consciousness is awake, alert, obeys commands, Oriented to person, place, time. Cardiovascular: Capillary refill < 3 seconds. Respiratory: Reports shortness of breath on exertion cough that is productive, persistent since before Summer. Airway is patent Respiratory effort is even, unlabored, Breath sounds are diminished bilaterally. in left lower lobe and right lower lobe. GI: Abdomen is round obese. : No signs and/or symptoms were reported regarding the genitourinary system. EENT: No deficits noted. Derm: Skin is intact, is healthy with good turgor, Skin temperature is warm. Musculoskeletal: Range of motion: intact in all extremities. 06:02 Reassessment: X Ray at bedside. vc 06:10 Reassessment: Provider at bedside. Pain: Denies pain. vc 06:20 Reassessment: Provider to discontinue sepsis protocol. vc 06:28 Reassessment: Patient head of bed lowered. Offered blanket to patient, no complaints at vc this time. Vital Signs: 05:53 BP 119 / 88; Pulse 93; Resp 24 S; Temp 98.5(O); Pulse Ox 100% on R/A; Weight 104.33 kg bb (R); Height 5 ft. 8 in. (172.72 cm) (R); Pain 0/10; 06:45 BP 102 / 61; Pulse 94; Resp 20; Pulse Ox 96% on R/A; Pain 0/10; vc 05:53 Body Mass Index 34.97 (104.33 kg, 172.72 cm) bb ED Course: 05:41 Patient arrived in ED. cl3 05:44 Reyna Ontiveros, RN is Primary Nurse. vc 05:53 Triage completed. bb 05:53 Arm band placed on Patient placed in an exam room, on a stretcher, on pulse oximetry. bb 05:55 Patient has correct armband on for positive identification. Placed in gown. Bed in low vc position. Call light in reach. Side rails up X2. 06:01 rCuz Parekh PA is PHCP. jr8 06:01 José Manuel Ortez MD is Attending Physician. jr8 06:09 Chest Single View XRAY In Process Unspecified. EDMS 06:51 No provider procedures requiring assistance completed. Patient did not have IV access vc during this emergency room visit. Administered Medications: No medications were administered Outcome: 06:33 Discharge ordered by MD. erwin 06:50 Discharged to home ambulatory. 06:50 Condition: good 06:50 Discharge instructions given to patient, Instructed on discharge instructions, follow up and referral plans. medication usage, Demonstrated understanding of instructions, follow-up care, Prescriptions given X 3. 06:51 Patient left the ED. Signatures: Dispatcher [employer] Trudy Zabala RN RN bb Roszak, Josh, PA PA jr8 Lewis, Charde cl3 Reyna Ontiveros RN RN vc
--- NOTE | 2019-02-10 06:34 | EDPHYS ---
Physician Documentation [facility] Name: Stuart Cameron Age: 49 yrs Sex: Male : 1970 Arrival Date: 02/10/2019 Time: 05:41 Bed 19 Private MD: ED Physician José Manuel Ortez HPI: 02/10 06:52 This 49 yrs old Male presents to ER via Ambulatory with complaints of Painful jr8 Cough. 06:52 The patient or guardian reports cough, that is intermittent, described as moderate, jr8 with productive sputum, that is green. Onset: The symptoms/episode began/occurred gradually, 1 week(s) ago. Severity of symptoms: At their worst the symptoms were moderate, in the emergency department the symptoms are unchanged. Modifying factors: The symptoms are alleviated by nothing, the symptoms are aggravated by nothing. Associated signs and symptoms: Pertinent positives: nasal discharge and sinus pressure . The patient has not experienced similar symptoms in the past. The patient has not recently seen a physician. has tried OTC medicine without relief . Historical: - Allergies: 05:53 No Known Allergies; bb - Home Meds: 05:53 None [Active]; bb - PMHx: 05:53 GERD; bb - PSHx: 05:53 colonoscopy; bb - Immunization history:: Adult Immunizations up to date, Flu vaccine is not up to date. - Social history:: Smoking status: Patient uses tobacco products, chewing tobacco, Patient uses alcohol, but reports only rare drinking. Patient/guardian denies using street drugs. - Ebola Screening: : No symptoms or risks identified at this time. ROS: 06:52 Eyes: Negative for injury, pain, redness, and discharge, Neck: Negative for injury, jr8 pain, and swelling, Cardiovascular: Negative for chest pain, palpitations, and edema, Abdomen/GI: Negative for abdominal pain, nausea, vomiting, diarrhea, and constipation, Back: Negative for injury and pain, MS/Extremity: Negative for injury and deformity, Skin: Negative for injury, rash, and discoloration, Neuro: Negative for headache, weakness, numbness, tingling, and seizure. 06:52 ENT: Positive for nasal discharge, sinus congestion, sinus pain. 06:52 Respiratory: Positive for cough, with green sputum, Negative for dyspnea on exertion, shortness of breath. Exam: 06:52 Eyes: Pupils equal round and reactive to light, extra-ocular motions intact. Lids and jr8 lashes normal. Conjunctiva and sclera are non-icteric and not injected. Cornea within normal limits. Periorbital areas with no swelling, redness, or edema. ENT: Nares patent. No nasal discharge, no septal abnormalities noted. Tympanic membranes are normal and external auditory canals are clear. Oropharynx with no redness, swelling, or masses, exudates, or evidence of obstruction, uvula midline. Mucous membranes moist. Neck: Trachea midline, no thyromegaly or masses palpated, and no cervical lymphadenopathy. Supple, full range of motion without nuchal rigidity, or vertebral point tenderness. No Meningismus. Cardiovascular: Regular rate and rhythm with a normal S1 and S2. No gallops, murmurs, or rubs. Normal PMI, no JVD. No pulse deficits. Respiratory: Lungs have equal breath sounds bilaterally, clear to auscultation and percussion. No rales, rhonchi or wheezes noted. No increased work of breathing, no retractions or nasal flaring. Abdomen/GI: Soft, non-tender, with normal bowel sounds. No distension or tympany. No guarding or rebound. No evidence of tenderness throughout. Back: No spinal tenderness. No costovertebral tenderness. Full range of motion. Skin: Warm, dry with normal turgor. Normal color with no rashes, no lesions, and no evidence of cellulitis. MS/ Extremity: Pulses equal, no cyanosis. Neurovascular intact. Full, normal range of motion. Neuro: Awake and alert, GCS 15, oriented to person, place, time, and situation. Cranial nerves II-XII grossly intact. Motor strength 5/5 in all extremities. Sensory grossly intact. Cerebellar exam normal. Normal gait. 06:52 Head/face: Sinus tenderness, that is moderate, is located over the right ethmoid sinus, left ethmoid sinus, right maxillary sinus and left maxillary sinus. Vital Signs: 05:53 BP 119 / 88; Pulse 93; Resp 24 S; Temp 98.5(O); Pulse Ox 100% on R/A; Weight 104.33 kg bb (R); Height 5 ft. 8 in. (172.72 cm) (R); Pain 0/10; 06:45 BP 102 / 61; Pulse 94; Resp 20; Pulse Ox 96% on R/A; Pain 0/10; vc 05:53 Body Mass Index 34.97 (104.33 kg, 172.72 cm) bb MDM: 06:01 Patient medically screened. jr8 06:32 Data reviewed: vital signs, nurses notes, radiologic studies, plain films, and as a jr8 result, I will discharge patient. Data interpreted: Pulse oximetry: on room air is 100 %. Interpretation: normal. Counseling: I had a detailed discussion with the patient and/or guardian regarding: the historical points, exam findings, and any diagnostic results supporting the discharge/admit diagnosis, radiology results, the need for outpatient follow up, a family practitioner, to return to the emergency department if symptoms worsen or persist or if there are any questions or concerns that arise at home. 02/10 05:56 Order name: Chest Single View XRAY [id number] Administered Medications: No medications were administered Disposition: 06:53 Co-signature as Attending Physician, José Manuel Ortez MD. sky Disposition: 02/10/19 06:33 Discharged to Home. Impression: Acute bronchitis, Acute sinusitis. - Condition is Stable. - Discharge Instructions: Acute Bronchitis, Adult, Sinusitis, Adult. - Prescriptions for Zithromax Z- Yovanny 250 mg Oral Tablet - take 1 tablet by ORAL route as directed for 5 days Day 1 - take two (2) tablets one time. Day 2, 3, 4 , 5 take one (1) tablet once daily.; 6 tablet. Prednisone 20 mg Oral Tablet - take 2 tablet by ORAL route once daily for 5 days; 10 tablet. Albuterol Sulfate 90 mcg/actuation - inhale 1-2 puff by INHALATION route every 4-6 hours; 1 Inhaler. - Medication Reconciliation Form, Thank You Letter, Antibiotic Education, Prescription Opioid Use, Work release form form. - Follow up: Private Physician; When: 1 week; Reason: Recheck today's complaints, Continuance of care, Re-evaluation by your physician. - Problem is new. - Symptoms have improved. Signatures: Dispatcher [employer] EDJosé Manuel Amin MD MD pkl Ballard, Brenda, RN RN Cruz Rendon PA PA jr8 Reyna Ontiveros RN RN vc Corrections: (The following items were deleted from the chart) 06:51 06:33 02/10/2019 06:33 Discharged to Home. Impression: Acute bronchitis; Acute vc sinusitis. Condition is Stable. Forms are Medication Reconciliation Form, Thank You Letter, Antibiotic Education, Prescription Opioid Use. Follow up: Private Physician; When: 1 week; Reason: Recheck today's complaints, Continuance of care, Re-evaluation by your physician. Problem is new. Symptoms have improved. jr8
[2019-02-10 07:04] VITALS: BP 119/88; TEMP 98.5; O2SAT 100
--- NOTE | 2019-02-10 08:09 | RAD REPORT ---
EXAM DESCRIPTION: Chelly Single View02/10/2019 6:10 am CLINICAL HISTORY: cough COMPARISON: none FINDINGS: The lungs appear clear of acute infiltrate. The heart is borderline enlarged IMPRESSION: No acute abnormalities displayed
== END 2019-02-10 06:51 | disposition home or self-care (01) ==
LOC: ER 05:40
DX: J20.9 Acute bronchitis, unspecified (principal); J01.90 Acute sinusitis, unspecified; F17.220 Nicotine dependence, chewing tobacco, uncomplicated
CPT/HCPCS: 71045; 99283